=== PATIENT | male | born 1990 | race African-American/Black ===

== ENCOUNTER 2016-11-30 14:34 | Observation (INO) | payer OTHER ==
[2016-11-30] MEDS ORDERED: Aspirin Low Dose CHEW TAB* 81 MG PO ONE (14:47)
[2016-11-30 14:57] LABS: Hematocrit 44 % (42-52); Hemoglobin 15.4 g/dl (14.0-18.0); Mean Corpuscular HGB Conc 35 g/dl (31-36); Mean Corpuscular Hemoglobin 33 pg (27-31); Mean Corpuscular Volume 94 fL (80-94); Mean Platelet Volume 9 um3 (7.4-10.4); Red Blood Count 4.65 10^6/ul (4.0-5.4); Red Cell Distribution Width 13 % (10.5-15); White Blood Count 4.1 10^3/ul (3.5-10.8)
[2016-11-30 15:17] LABS: Albumin 4.4 g/dL (3.2-5.2); BUN/Creatinine Ratio 9.9 (8-20); Calcium 9.7 mg/dL (8.6-10.3); EGFR African American 92.5 (>60); EGFR Non-African American 71.9 (>60); Globulin 2.7 g/dL (2-4); Potassium 4.1 mmol/L (3.5-5.0); Total Bilirubin 1.1 mg/dL (0.2-1.0); Total Protein 7.1 g/dL (6.4-8.9)
[2016-11-30 15:22] LABS: Troponin I 0.04 ng/mL (<0.04)
[2016-11-30] MEDS ORDERED: NS 0.9% 1000 ML* 1,000 ML IV ONE (15:48)
[2016-11-30] MEDS ORDERED: Morphine INJ* 2 MG/ML 1 ML SYRINGE (TWO MG - NEW SYRINGE VERSION) IV PRN (16:10)
[2016-11-30] MEDS ORDERED: Acetaminophen TAB* 325 MG PO PRN (16:10)
[2016-11-30 17:14] LABS: Benzodiazepine Urine Screen None Detected (None Detect)
[2016-11-30 17:35] LABS: EBV Response YES
[2016-11-30] MEDS: NS 0.9% 1000 ML* 1,000 ML IV SCH (17:50)
[2016-11-30 17:58] LABS: Mono Internal Control QC Line Present
--- NOTE | 2016-11-30 21:04 | HP ---
CC: Dr. Bronson; [facility] * HISTORY AND PHYSICAL: DATE OF ADMISSION: 11/30/16 PRIMARY CARE PROVIDER: Physician from [facility]. CHIEF COMPLAINT: Chest pain. HISTORY OF PRESENT ILLNESS: Mr. Villafana is a 26-year-old male, who appears to have no prior medical issues apart from left inguinal hernia repair several years ago, who presented to the hospital after he had an episode of near syncope and chest pain. The patient stated that today he was getting out of bed , he stood up, he felt that it was "black in front of his eyes." He sat down and his vision got better. He stood up again and it happened again. At that point, he started experiencing shortness of breath and afterwards, he felt that he could not take a deep breath. He started experiencing chest pain localized in the left pectoralis muscle. The pain was not pleuritic and not radiating, at 7/10 in intensity. The pain lasted until the patient was evaluated in the emergency room, which was at least an hour. It was relieved in the emergency department with morphine. The patient initially was STEMI alert and Dr. Bronson saw the patient in evaluation and did a bedside echocardiogram. Unfortunately, I do not have the report of that yet. The patient's troponin was 0.04 on presentation. His EKG showed diffuse ST elevation, but those were downsloping, most likely due to criteria for LVH. The patient also had negative T waves in leads V5 and V6. Also, there were negative T waves in leads II, III, and aVF. During my evaluation, the patient is chest pain free and feels comfortable. He stated that he had 2 or 3 similar episodes to date. One was approximately a month ago when he was talking on the phone with one of his family members and another one was approximately 6 weeks ago. All of them resolved spontaneously. Today's chest pain was more severe than before. PAST MEDICAL HISTORY: History of left inguinal hernia repair when the patient was a teenager. MEDICATIONS: None. ALLERGIES: SHELLFISH and BANANA. FAMILY HISTORY: Negative for heart disease, cancer, diabetes in parents. The patient is the only child. SOCIAL HISTORY: The patient has been smoking half a pack of cigarettes ever since he was 18. He denies any alcohol or drug use. He is currently a prisoner at [facility]. He is single. REVIEW OF SYSTEMS: Please see history of present illness. The patient stated that he usually plays basketball approximately 2 hours on a daily basis without any problems. Sometimes, he stated that he feels that maybe he develops some shortness of breath, but he continues to play basketball and the shortness of breath resolves. He never experienced chest pain with playing basketball and the last time he played continuously for 2 hours was yesterday. All the remaining 14 systems were reviewed with the patient and were otherwise negative. PHYSICAL EXAMINATION GENERAL: The patient is a very pleasant 26-year-old male, who is in no acute distress. Alert, awake, and oriented x3. VITAL SIGNS: Blood pressure 117/63, heart rate of 55 and regular, respiratory rate 17, oxygen saturation % on room air, temperature 99.8. HEENT: Head is atraumatic, normocephalic. Eyes: Pupils are equal and reactive to light and accommodation. Oropharynx clear. Mucosa moist. NECK: Supple. No JVD. No bruits bilaterally. RESPIRATORY: Clear to auscultation bilaterally. CARDIOVASCULAR: Regular rate and rhythm, no murmur. ABDOMEN: Soft, nontender. Bowel sounds present in all 4 quadrants. EXTREMITIES: There is no edema. Pulses are +2 bilaterally. No clubbing or cyanosis. NEURO: Speech clear. Cranial nerves II through XII grossly intact. Motor strength is 5/5 bilaterally. PSYCHIATRIC: The patient is pleasant, cooperative with evaluation with no evidence of anxiety or depression. DIAGNOSTIC STUDIES/LAB DATA: Showed sodium of 136, potassium of 4.1, chloride 100, carbon dioxide 31, BUN 12, creatinine 1.21. Liver function tests were unremarkable apart from total bilirubin of 1.1. Troponin was 0.04. CBC: White blood cell count of 4.1, hemoglobin of 15.4, hematocrit of 44, and platelets of 214. Also, noted on the patient's white blood cell count differential, the patient had 35% neutrophils, 48 lymphocytes, and 11 monocytes. The neutrophils were lower, the lymphocytes and monocytes were elevated. Urine drug screen was unremarkable. Cameron screen was pending at the time of dictation. The patient's echocardiogram report that was just noted to be available shows EF of 55% to 60% with normal left ventricular systolic function, normal left ventricular diastolic filling is observed, and no other abnormalities. The patient's portable chest x-ray shows marked increase in interstitial markings in bilateral upper lobes. The radiologist's report is still pending. ASSESSMENT AND PLAN: 1. A 26-year-old male who came in with episodes of near syncope. At this point , although orthostatics were ordered, they have not been performed yet. The patient did have variable blood pressures in the emergency department ranging between 140 and 109 systolically. I suspect his symptoms are due to orthostasis. He does not have any history that would prove that he could be dehydrated. Although he does exercise on a daily basis, he did not exercise prior to the episode yet. At this point, the patient is going to be placed on intravenous hydration. 2. In regards to the patient's chest pain, the patient does have voltage criteria for left ventricular hypertrophy and nonspecific EKG changes. His ST elevation appears to be actually likely early repolarization in this young male. At this point, the patient is going to be placed on overnight observation on telemetry monitored bed. His serial troponins are going to be obtained and we are going to obtain a treadmill stress test in the morning. 3. For DVT prophylaxis, the patient is fully ambulatory. 4. In regards to abnormal WBC differential, Monospot and HIV test is going to be obtained. TIME SPENT: Approximately 62 minutes was spent on admission of this patient, more than half that time was spent [id number] with the patient during the interview and physical exam. [id number]/[facility] #: [id number] LORIN
[2016-12-01] MEDS: NS 0.9% 1000 ML* 1,000 ML IV SCH (01:50)
--- NOTE | 2016-12-01 10:54 | RAD ---
Edited for charges. Indication: Chest pain. Myocardial perfusion scan was performed utilizing 1 day protocol. 10.2 mCi technetium 99m tetrofosmin was injected for the rest portion of the study. Treadmill stress study was performed and the maximum heart rate achieved was 90% of the maximum predicted value. There is homogeneous distribution of the radiotracer throughout the left ventricle. There is no evidence of fixed or reversible perfusion defect identified. The ejection fraction at stress is 50%. No focal wall motion abnormality is identified. IMPRESSION: No evidence of fixed or reversible perfusion defect is identified. Normal ejection fraction. ASSESSMENT: Low risk Based on imaging criteria from ACC/AHA 2002 Guideline Update for the Management of Patients With Chronic Stable Angina Table 23. Noninvasive Risk Stratification. MTDD
--- NOTE | 2016-12-01 11:34 | RAD ---
HISTORY: STEMI COMPARISONS: None VIEWS: 1: frontal portable view of the chest at 2:44 PM, submitted for review on December 01, 2016 FINDINGS: LINES AND TUBES: None. CARDIOMEDIASTINAL SILHOUETTE: The cardiomediastinal silhouette is normal for portable technique. PLEURA: The costophrenic angles are sharp. No pleural abnormalities are noted. LUNG PARENCHYMA: The lungs are clear. ABDOMEN: The upper abdomen is clear. There is no subphrenic gas. BONES AND SOFT TISSUES: No bone or soft tissue abnormalities are noted. IMPRESSION: NO ACTIVE CARDIOPULMONARY DISEASE.
[2016-12-01 11:52] VITALS: BP 132/81
[2016-12-01] MEDS ORDERED: Diltiazem CD CAP* 120 MG PO SCH (12:00)
--- NOTE | 2016-12-01 14:55 | DCNOTE ---
Subjective Date of Service: 12/01/16 Interval History: No more chest pain here. No new c/o. Objective Vital Signs 11/30/16 11/30/16 11/30/16 16:30 16:39 17:00 Temperature 98.3 F Pulse Rate 59 55 57 Respiratory 16 18 17 Rate Blood Pressure 117/63 136/65 (mmHg) O2 Sat by Pulse 98 98 99 Oximetry 11/30/16 11/30/16 11/30/16 19:14 23:20 23:24 Temperature 98.0 F 98.4 F Pulse Rate 50 48 55 Respiratory 20 16 Rate Blood Pressure 111/46 112/52 139/67 (mmHg) O2 Sat by Pulse 100 99 Oximetry 12/01/16 12/01/16 12/01/16 03:53 07:20 11:33 Temperature 97.7 F 97.6 F 98.3 F Pulse Rate 48 47 54 Respiratory 18 16 16 Rate Blood Pressure 108/57 125/91 132/81 (mmHg) O2 Sat by Pulse 99 100 100 Oximetry Oxygen Devices in Use Now: None Appearance: Alert, supine in bed. In good spirits. Looks comfortable. Eyes: No Scleral Icterus Ears/Nose/Mouth/Throat: Clear Oropharnyx, Mucous Membranes Moist Neck: NL Appearance and Movements; NL JVP, No Thyroid Enlargement, Masses Respiratory: Symmetrical Chest Expansion and Respiratory Effort, Clear to Auscultation, Clear to Percussion Cardiovascular: NL Sounds; No Murmurs; No JVD, RRR, No Edema, - Abdominal: NL Sounds; No Tenderness; No Distention, No Hepatosplenomegaly, - Extremities: No Edema, No Clubbing, Cyanosis, - Skin: No Rash or Ulcers, No Nodules or Sclerosis, - Neurological: Alert and Oriented x 3, NL Sensation Result Diagrams: 11/30/16 14:45 11/30/16 14:45 Assess/Plan/Problems-Billing Assessment: - Patient Problems (1) Chest pain Status: Acute Code(s): R07.9 - CHEST PAIN, UNSPECIFIED SNOMED Code(s): 35666080 Comment: Normal nuclear images part of stress test. ST-T changes at times on ECG portion. Clinically suspect LVH as cause. Rx diltiazem CD 120 mg daily and refer for outpt cardiology fup/consultation. Status and Disposition: Discharge to his custodial.
--- NOTE | 2016-12-01 22:15 | DS ---
DISCHARGE SUMMARY: DATE OF ADMISSION: 11/30/16 DATE OF DISCHARGE: 12/01/16 HISTORY: This 26-year-old man was transferred from [facility] with a complaint of chest pain. He said he was sleeping at 11 o'clock. He got up, he was feeling okay until he walked around for a minute, he then developed pain in the left side of his chest with some funny sensation in the left side of his arm. He said he initially was a little dizzy or light-headed and felt he could not hear and could not see. He did not fall down or pass out. He actually yelled at the guards for some attention and was brought here. He had abnormal EKG in the emergency room. Three troponins were drawn, all of which were exactly 0.04. He underwent a treadmill nuclear medicine stress test the following morning. The nuclear images showed no evidence of infarct or ischemia. At rest, he continued to have ST and T wave changes but they actually improved with exercise. Overall, the 3 EKGs done at rest showed improvement, although not to normal. My clinical impression is that the patient may have stress and exercise related hypertension. He does apparently a lot of isometric exercise. His echocardiogram did show mild left ventricular hypertrophy. I am going to start him on diltiazem CD 120 mg daily and have him follow up with the strain technician in 1 to 2 weeks. FINAL DIAGNOSES: 1. Chest pain. 2. Hypertension. DISCHARGE MEDICATIONS: 1. Aspirin 325 mg daily. 2. Diltiazem CD 120 mg daily. [id number]/[facility] #: [id number] MTDD
[2016-12-02 12:41] LABS: EBV Capsid Ag IgG Ab Positive (Negative); EBV Capsid Ag IgM Ab Negative (Negative)
--- NOTE | 2016-12-03 12:23 | ED ---
Camila Colon Thomas, scribed for Turner Dang MD on 11/30/16 at 1501 . HPI Chest Pain - HPI Summary HPI Summary: The patient is a 26 y/o M BIBA from his correctional facility s/p three syncopal episodes. He denies any trauma or pain from resulting from these syncopal episodes. He denies CP in the ED. However, the patient reports that when he lies up from supine position his vision begins to escudero and he develops L -sided CP. This CP is alleviated by lying down. He denies recent illness, leg swelling, or leg pain. He was given ASA 324 DRIER AND PULVERIZER TENDER. PMHx: negative for CAD, HLD, DM , and HTN. PSHx: none. SHx: current smoker, no alcohol use, no illicit drug use. FHx: negative for MS. He is incarcerated for a [id number] offense. Per EMS, his blood glucose was 100 DRIER AND PULVERIZER TENDER. - History of Current Complaint Chief Complaint: EDChestWallPain Time Seen by Provider: 11/30/16 14:35 Hx Obtained From: Patient Onset/Duration: Resolved - prior to arrival, the patient had L-sided CP when sitting up from supine Timing: Intermittent Current Severity: None Pain Intensity: 0 Pain Scale Used: 0-10 Numeric Chest Pain Location: Discrete at: - L-sided Aggravating Factor(s): Other: - Sitting up from supine Alleviating Factor(s): Other: - Lying supine Associated Signs and Symptoms: Positive: Chest Pain, Other: - Three syncopal episodes, graying vision; NEGATIVE: recent illness, leg swelling, leg pain - Allergy/Home Medications Allergies/Adverse Reactions: Allergies Allergy/AdvReac Type Severity Reaction Status Date / Time Banana Allergy Unknown Verified 11/30/16 15:18 Reaction Details Shellfish Allergy Allergy Unknown Verified 11/30/16 15:18 Reaction Details Home Medications: Home Medications Aspirin TAB* [Aspirin 325 MG TAB*] 325 mg PO ONCE 11/30/16 [History Confirmed ] PMH/Surg Hx/FS Hx/Imm Hx Previously Healthy: Yes Endocrine/Hematology History: Denies: Hx Diabetes Cardiovascular History: Denies: Hx Hypertension - Surgical History Surgery Procedure, Year, and Place: Hernia repair Infectious Disease History: Unable to Obtain/Confirm Infectious Disease History: Denies: Traveled Outside the [place] in Last 30 Days - Family History Known Family History: Negative: Cardiac Disease - Social History Occupation: Unemployed - He is a prisoner Alcohol Use: None Hx Substance Use: No Substance Use Type: Reports: None Hx Tobacco Use: Yes Smoking Status (MU): Current Every Day Smoker Review of Systems Negative: Fever, Chills Positive: Other - Graying of vision when sitting up. Negative: Erythema - eyes Negative: Sore Throat Positive: Chest Pain - L-sided CP when sitting up Negative: Shortness Of Breath, Cough Negative: Abdominal Pain, Vomiting, Nausea Negative: dysuria, hematuria Negative: Myalgia, Edema - legs, Other - NEGATVE: leg swelling, leg pain Negative: Rash Neurological: Other - NEGATIVE: dizziness Positive: Syncope - three episodes All Other Systems Reviewed And Are Negative: Yes Physical Exam - Summary Physical Exam Summary: Constitutional: Well-developed, Well-nourished, Alert. (-) Distressed Skin: Warm, Dry HENT: Normocephalic; Atraumatic Eyes: Conjunctiva normal Neck: Musculoskeletal ROM normal neck. (-) JVD, (-) Stridor, (-) Tracheal deviation Cardio: Rhythm regular, rate normal, Heart sounds normal; Intact distal pulses; The pedal pulses are 2+ and symmetric. Radial pulses are 2+ and symmetric. (-) Murmur Pulmonary/Chest wall: Effort normal. (-) Respiratory distress, (-) Wheezes, (-) Rales Abd: Soft, (-) Tenderness, (-) Distension, (-) Guarding, (-) Rebound Musculoskeletal: (-) Edema Lymph: (-) Cervical adenopathy Neuro: Alert, Oriented x3 Psych: Mood and affect Normal Triage Information Reviewed: Yes Vital Signs On Initial Exam: Initial Vitals Temp Pulse Resp BP Pulse Ox 99.8 F 60 20 140/76 100 11/30/16 14:44 11/30/16 14:44 11/30/16 14:44 11/30/16 14:44 11/30/16 14:44 Vital Signs Reviewed: Yes Diagnostics - Vital Signs Vital Signs Temp Pulse Resp BP Pulse Ox 11/30/16 14:44 99.8 F 60 20 140/76 100 - Laboratory Lab Results: Lab Results 11/30/16 11/30/16 11/30/16 Range/Units 14:45 14:45 14:45 WBC 4.1 (3.5-10.8) 10^3/ul RBC 4.65 (4.0-5.4) 10^6/ul Hgb 15.4 (14.0-18.0) g/dl Hct 44 (42-52) % MCV 94 (80-94) fL MCH 33 H (27-31) pg MCHC 35 (31-36) g/dl RDW 13 (10.5-15) % Plt Count 214 (150-450) 10^3/ul MPV 9 (7.4-10.4) um3 Neut % (Auto) 35.0 L (38-83) % Lymph % (Auto) 48.7 H (25-47) % [place] % (Auto) 11.2 H (1-9) % Eos % (Auto) 4.1 (0-6) % Baso % (Auto) 1.0 (0-2) % Absolute Neuts (auto) 1.4 L (1.5-7.7) 10^3/ul Absolute Lymphs (auto) 2.0 (1.0-4.8) 10^3/ul Absolute Monos (auto) 0.5 (0-0.8) 10^3/ul Absolute Eos (auto) 0.2 (0-0.6) 10^3/ul Absolute Basos (auto) 0 (0-0.2) 10^3/ul Absolute Nucleated RBC 0 10^3/ul Nucleated RBC % 0.1 D-Dimer, Quantitative < 200 (Less Than 230) ng/mL Sodium 136 (133-145) mmol/L Potassium 4.1 (3.5-5.0) mmol/L Chloride 100 L (101-111) mmol/L Carbon Dioxide 31 (22-32) mmol/L Anion Gap 5 (2-11) mmol/L BUN 12 (6-24) mg/dL Creatinine 1.21 H (0.67-1.17) mg/dL Est GFR ( Amer) 92.5 (>60) Est GFR (Non-Af Amer) 71.9 (>60) BUN/Creatinine Ratio 9.9 (8-20) Glucose 101 H (70-100) mg/dL Lactic Acid (0.5-2.0) mmol/L Calcium 9.7 (8.6-10.3) mg/dL Total Bilirubin 1.10 H (0.2-1.0) mg/dL AST 21 (13-39) U/L ALT 14 (7-52) U/L Alkaline Phosphatase 65 (34-104) U/L Total Creatine Kinase 293 H (10-223) U/L CK-MB (CK-2) 2.4 (0.6-6.3) ng/mL Myoglobin 32.1 (17.4-105.7) ng/mL Troponin I 0.04 H* (<0.04) ng/mL Total Protein 7.1 (6.4-8.9) g/dL Albumin 4.4 (3.2-5.2) g/dL Globulin 2.7 (2-4) g/dL Albumin/Globulin Ratio 1.6 (1-3) EBV Capsid Ag IgG Ab (Negative) EBV Capsid Ag IgM Ab (Negative) EBV Nuclear Antigen (Negative) EBV Interpretation Monoscreen (Negative) HIV 1&2 Antibody (Nonreactive) 11/30/16 11/30/16 11/30/16 Range/Units 14:45 14:45 14:45 WBC (3.5-10.8) 10^3/ul RBC (4.0-5.4) 10^6/ul Hgb (14.0-18.0) g/dl Hct (42-52) % MCV (80-94) fL MCH (27-31) pg MCHC (31-36) g/dl RDW (10.5-15) % Plt Count (150-450) 10^3/ul MPV (7.4-10.4) um3 Neut % (Auto) (38-83) % Lymph % (Auto) (25-47) % [place] % (Auto) (1-9) % Eos % (Auto) (0-6) % Baso % (Auto) (0-2) % Absolute Neuts (auto) (1.5-7.7) 10^3/ul Absolute Lymphs (auto) (1.0-4.8) 10^3/ul Absolute Monos (auto) (0-0.8) 10^3/ul Absolute Eos (auto) (0-0.6) 10^3/ul Absolute Basos (auto) (0-0.2) 10^3/ul Absolute Nucleated RBC 10^3/ul Nucleated RBC % D-Dimer, Quantitative (Less Than 230) ng/mL Sodium (133-145) mmol/L Potassium (3.5-5.0) mmol/L Chloride (101-111) mmol/L Carbon Dioxide (22-32) mmol/L Anion Gap (2-11) mmol/L BUN (6-24) mg/dL Creatinine (0.67-1.17) mg/dL Est GFR ( Amer) (>60) Est GFR (Non-Af Amer) (>60) BUN/Creatinine Ratio (8-20) Glucose (70-100) mg/dL Lactic Acid 1.1 (0.5-2.0) mmol/L Calcium (8.6-10.3) mg/dL Total Bilirubin (0.2-1.0) mg/dL AST (13-39) U/L ALT (7-52) U/L Alkaline Phosphatase (34-104) U/L Total Creatine Kinase (10-223) U/L CK-MB (CK-2) (0.6-6.3) ng/mL Myoglobin (17.4-105.7) ng/mL Troponin I (<0.04) ng/mL Total Protein (6.4-8.9) g/dL Albumin (3.2-5.2) g/dL Globulin (2-4) g/dL Albumin/Globulin Ratio (1-3) EBV Capsid Ag IgG Ab (Negative) EBV Capsid Ag IgM Ab (Negative) EBV Nuclear Antigen (Negative) EBV Interpretation Monoscreen Negative (Negative) HIV 1&2 Antibody Nonreactive (Nonreactive) 11/30/16 Range/Units 14:45 WBC (3.5-10.8) 10^3/ul RBC (4.0-5.4) 10^6/ul Hgb (14.0-18.0) g/dl Hct (42-52) % MCV (80-94) fL MCH (27-31) pg MCHC (31-36) g/dl RDW (10.5-15) % Plt Count (150-450) 10^3/ul MPV (7.4-10.4) um3 Neut % (Auto) (38-83) % Lymph % (Auto) (25-47) % [place] % (Auto) (1-9) % Eos % (Auto) (0-6) % Baso % (Auto) (0-2) % Absolute Neuts (auto) (1.5-7.7) 10^3/ul Absolute Lymphs (auto) (1.0-4.8) 10^3/ul Absolute Monos (auto) (0-0.8) 10^3/ul Absolute Eos (auto) (0-0.6) 10^3/ul Absolute Basos (auto) (0-0.2) 10^3/ul Absolute Nucleated RBC 10^3/ul Nucleated RBC % D-Dimer, Quantitative (Less Than 230) ng/mL Sodium (133-145) mmol/L Potassium (3.5-5.0) mmol/L Chloride (101-111) mmol/L Carbon Dioxide (22-32) mmol/L Anion Gap (2-11) mmol/L BUN (6-24) mg/dL Creatinine (0.67-1.17) mg/dL Est GFR ( Amer) (>60) Est GFR (Non-Af Amer) (>60) BUN/Creatinine Ratio (8-20) Glucose (70-100) mg/dL Lactic Acid (0.5-2.0) mmol/L Calcium (8.6-10.3) mg/dL Total Bilirubin (0.2-1.0) mg/dL AST (13-39) U/L ALT (7-52) U/L Alkaline Phosphatase (34-104) U/L Total Creatine Kinase (10-223) U/L CK-MB (CK-2) (0.6-6.3) ng/mL Myoglobin (17.4-105.7) ng/mL Troponin I (<0.04) ng/mL Total Protein (6.4-8.9) g/dL Albumin (3.2-5.2) g/dL Globulin (2-4) g/dL Albumin/Globulin Ratio (1-3) EBV Capsid Ag IgG Ab Positive (Negative) EBV Capsid Ag IgM Ab Negative (Negative) EBV Nuclear Antigen Positive (Negative) EBV Interpretation See comment Monoscreen (Negative) HIV 1&2 Antibody (Nonreactive) Result Diagrams: 11/30/16 14:45 11/30/16 14:45 Lab Statement: Any lab studies that have been ordered have been reviewed, and results considered in the medical decision making process. - EKG 14:39 Cardiac Rate: Bradycardia - 55 BPM. Tall R waves in V4-V6. TWI in V5, V6 and inferior leads. ST elevations approximately 1mm in AVL, V2-V4. 16:30 Cardiac Rate: NL - 51 BPM EKG Rhythm: Sinus Bradycardia EKG Interpretation: No STEMI. T-waves are now upright. Chest Pain Course/Dx - Course Assessment/Plan: The patient is a 26 y/o M BIBA from his correctional facility s /p three syncopal episodes. He denies any trauma or pain from resulting from these syncopal episodes. He denies CP in the ED. However, the patient reports that when he lies up from supine position his vision begins to escudero and he develops L-sided CP. This CP is alleviated by lying down. He denies recent illness, leg swelling, or leg pain. He was given ASA 324 DRIER AND PULVERIZER TENDER. PMHx: negative for CAD, HLD, DM, and HTN. PSHx: none. SHx: current smoker, no alcohol use, no illicit drug use. FHx: negative for MS. He is incarcerated for a non-drug- related offense. Per EMS, his blood glucose was 100 DRIER AND PULVERIZER TENDER. In the ED course the patient was given ASA and IV fluids. Bloodwork was obtained and it shows troponin 0.04. EKGs were obtained with interpretation earlier in this report. I consulted with Dr. Bronson, cardiology, and he came to the ED to evaluate the patient. He performed a bedside ultrasound that has LVH but the final report is pending. He recommends admission to [facility] for further workup by the hospitalists. He wants to be updated if the patient's troponin is seriously elevated. I spoke with him again at 16:20, and recommends ICU admission if there are any EKG changes. He also recommends to skyler his chest for lead placement with a marker. I consulted with him again at 16:30 and he asks that we add on CK, CKMB, and myoglobin. He requests an immdiate repeat EKG. If there are any changes, he requests admission to ICU for close monitoring. I did relay this to Dr. Freeman, who was made aware of the patient at 15:48. She admits the patient to [facility]. - Diagnoses Provider Diagnoses: Chest pain - Provider Notifications Discussed Care Of Patient With: Vahid Bronson Time Discussed With Above Provider: 14:41 Instructed by Provider To: Other - I consulted with Dr. Bronson, cardiology, and he came to the ED to evaluate the patient. He performed a bedside ultrasound that has LVH but the final report is pending. He recommends admission to [facility] for further workup by the hospitalists. He wants to be updated if the patient's troponin is seriously elevated. I spoke with him again at 16:20, and recommends ICU admission if there are any EKG changes. He also recommends to skyler his chest for lead placement with a marker. I consulted with him again at 16:30 and he asks that we add on CK, CKMB, and myoglobin. He requests an immdiate repeat EKG. If there are any changes, he requests admission to ICU for close monitoring. I did relay this to Dr. Freeman, who was made aware of the patient at 15:48. She admits the patient to [facility]. Discharge - Discharge Plan Condition: Stable Disposition: ADMITTED TO [facility] The documentation as recorded by the Camila winter Thomas accurately reflects the service I personally performed and the decisions made by me, Turner Dang MD.
== END 2016-12-01 13:00 ==
LOC: ED 14:34 → MEDTELE 16:10 → EEVIPCON 16:10
PROVIDERS: ADMIT Internal Medicine; ATTEND Internal Medicine
DX: R07.9 Chest pain, unspecified (principal); R55 Syncope and collapse; I10 Essential (primary) hypertension; R00.1 Bradycardia, unspecified; I51.7 Cardiomegaly; F17.210 Nicotine dependence, cigarettes, uncomplicated; R06.02 Shortness of breath
CPT/HCPCS: 36415; 71010; 78452; 80053; 80307; 82550; 82553; 83605; 83874; 84484; 85025; 85379; 86308; 86664; 86665; 86703; 93005; 93017; 93306; 96360; 96361; 99283; A9270-GY; A9502; G0378